=== PATIENT | male | born 1980 | race Two or more races ===

== ENCOUNTER 2017-07-16 19:05 | Emergency (ER) | payer SELFPAY | END 2017-07-16 19:50 | disposition home or self-care (01) | LOC: ER 19:05 | DX: K04.7 Periapical abscess without sinus (principal) | CPT/HCPCS: 99283 ==

== ENCOUNTER 2019-11-02 13:05 | Emergency (ER) | payer SELFPAY ==
[~2019-11-02] VITALS: Ht 167.6 cm; Wt 59.1 kg
[~2019-11-02 13:05] MED LIST: AMOX1TAB11 PO; IBUP-1027 PO; IBUP-1060 PO; PENI500T PO
[2019-11-02] MEDS ORDERED: SULF1TAB23 PO (14:05)
--- NOTE | 2019-11-02 14:06 | PHYS DOC ---
Past Medical History Past Medical History: No Pertinent History Past Surgical History: No Surgical History Smoking Status: Current Every Day Smoker Alcohol Use: Occasionally Drug Use: None General Adult EDM: Chief Complaint: INSECT BITE HPI: HPI: Patient is a 39 year old male who presents with an insect bite/area of redness on the left thigh that he noted yesterday. Patient believes he was bit by a spider. Denies any fever. Denies any trouble breathing. Review of Systems: Review of Systems: Constitutional: Denies fever or chills. [] Musculoskeletal: Denies back pain or joint pain. [] Integument: Insect bite to the left thigh Neurologic: Denies headache, focal weakness or sensory changes. [] Psychiatric: Denies depression or anxiety. [] Heart Score: Risk Factors: Risk Factors: DM, Current or recent (<one month) smoker, HTN, HLP, family history of CAD, obesity. Risk Scores: Score 0 - 3: 2.5% MACE over next 6 weeks - Discharge Home Score 4 - 6: 20.3% MACE over next 6 weeks - Admit for Clinical Observation Score 7 - 10: 72.7% MACE over next 6 weeks - Early Invasive Strategies Allergies: Allergies: Allergies Coded Allergies Type Severity Reaction Last Updated Verified No Known Drug Allergies 03/26/14 No Physical Exam: PE: Constitutional: Well developed, well nourished, no acute distress, non-toxic appearance. [] Skin: Warm, dry, left thigh posterior aspect with a tiny black lani approximately 0.2 x 0.2 cm with surrounding mild cellulitis. There is no fluctuance to this area. Back: No tenderness, no CVA tenderness. [] Extremities: No tenderness, no cyanosis, no clubbing, ROM intact, no edema. [] Neurologic: Alert and oriented X 3, normal motor function, normal sensory function, no focal deficits noted. [] Psychologic: Affect normal, judgement normal, mood normal. [] EKG: EKG: [] Radiology/Procedures: Radiology/Procedures: [] Course & Med Decision Making: Course & Med Decision Making Pertinent Labs and Imaging studies reviewed. (See chart for details) This is a 39-year-old female patient presenting to the ED today with an insect bite to that appears infected on posterior thigh. Tetanus up-to-date. Put on Bactrim. Wound care instructions and return precautions provided. Dragon Disclaimer: Gerald Disclaimer: This electronic medical record was generated, in whole or in part, using a voice recognition dictation system. Departure Departure Impression: Primary Impression: Insect bite Qualified Codes: S80.862A - Insect bite (nonvenomous), left lower leg, initial encounter; W57.XXXA - Bitten or stung by nonvenomous insect and other nonvenomous arthropods, initial encounter Additional Impression: Cellulitis, leg Qualified Codes: L03.116 - Cellulitis of left lower limb Disposition: HOME, SELF-CARE Condition: STABLE Patient Instructions: Insect Bite, [id number] Additional Instructions: You have an infected area to your posterior thigh. Take the prescribed antibiotics until completed. Follow-up with your doctor in 1 to 2 weeks. Scripts Sulfamethoxazole/Trimethoprim (BACTRIM 400-80 MG TABLET) 1 Each Tablet 1 TAB PO BID for 10 Days, #20 TAB 0 Refills Prov: FRANCISCA LOPEZ APRN 11/02/19 Justicifation of Admission Dx: Justifications for Admission: Justification of Admission Dx: N/A FRANCISCA LOPEZ APRN Nov 02, 2019 14:05
[2019-11-02 14:10] VITALS: BP 137/86
== END 2019-11-02 14:56 | disposition home or self-care (01) ==
LOC: ER 13:05
DX: S80.862A Insect bite (nonvenomous), left lower leg, initial encounter (principal); L03.116 Cellulitis of left lower limb; F17.200 Nicotine dependence, unspecified, uncomplicated; W57.XXXA Bitten or stung by nonvenomous insect and other nonvenomous arthropods, initial encounter; Y93.89 Activity, other specified; Y92.89 Other specified places as the place of occurrence of the external cause; Y99.8 Other external cause status
CPT/HCPCS: 99283